=== PATIENT | female | born 1935 | race Caucasian/White ===

== ENCOUNTER 2016-08-22 05:13 | Day surgery (SDC) | payer MEDICARE, BC ==
[2016-08-21 15:21] LABS: HEMATOCRIT 41.4 % (36.0-48.0); HEMOGLOBIN 13.5 g/dL (12-16); MCH 31.3 pg (26.0-34.0); MCHC 32.6 g/dL (31.0-37.0); MCV 95.8 fL (80.0-100.0); MEAN PLATELET VOLUME 9.4 fL (7.4-10.4); RBC 4.32 10x6/uL (4.00-5.40); WBC 4.2 10x3/uL (4.8-10.8)
[~2016-08-22] VITALS: Ht 157.5 cm; Wt 68.0 kg
--- NOTE | ~2016-08-22 | OP ---
PATIENT NAME: REGINALD GIORDANO MEDICAL RECORD: [id number] LOCATION:[facility] ADMISSION DATE: SURGEON: NISSA FLORES DPM DATE OF OPERATION: 08/22/2016 PREOPERATIVE DIAGNOSIS: Enlarged fifth metatarsal head, right foot. POSTOPERATIVE DIAGNOSIS: Enlarged fifth metatarsal head, right foot. PROCEDURE: Fifth metatarsal head resection, right foot. ANESTHESIA: Local with IV sedation utilizing lidocaine and Marcaine plain, approximately 10 cc total around the fifth ray of the right foot. HEMOSTASIS: Right ankle tourniquet at 250 mmHg. PREOPERATIVE DETAILS: The patient was taken to the OR and placed on the operating table in supine position. This was followed by induction of general anesthesia and infiltration of local anesthetic. The right extremity was then prepped and draped in the usual aseptic technique followed by exsanguination of extremity and inflation of tourniquet. A 15 blade was used to create a 4-cm linear incision over dorsal aspect of the shaft of the fifth metatarsal extending to the fifth MPJ. The incision was deepened down through subcutaneous tissue. Periosteal incision was made and the head of the fifth metatarsal was delivered. Osteotome and mallet were then used to resect the head of the fifth metatarsal. All rough areas were smoothed with a rongeur and rasp. Wound was flushed. The deep tissue was closed with 2-0 Vicryl, the subcutaneous tissue with 4-0 Rapide and the skin was closed with 4-0 Rapide in a subcuticular technique followed by Dermabond, Adaptic, 4 x 4 and Conform were used to dress the wound followed by Fili wrap. Tourniquet was deflated. POSTOPERATIVE DETAILS: The patient tolerated the procedure well and left the OR with vital signs stable and vascular status at preoperative levels. The patient was transported to recovery per anesthesia in stable condition. TRANSINT:[id number] Voice Confirmation ID: [id number] DOCUMENT ID: [id number] NISSA FLORES DPM CC: [id number] DICTATION DATE: 08/22/16 1119 [employer] [employer]ER: 08/22/16 2216 [facility] 08/22/16 [facility] [address] [place] [address]
[~2016-08-22 05:13] MED LIST: CALAN SR240 MG PO; CALCIUM 600+D T1 TA1 PO; MIRAPEX1 MG PO; VOLTAREN75 MG PO
[2016-08-22 09:56] VITALS: BP 159/68; Ht 157.5 cm; Wt 68.0 kg
== END 2016-08-22 13:20 | disposition home or self-care (01) ==
LOC: D.OPS 05:13 → D.PAN 11:30 → D.OPS 13:20 → D.PAN 13:30
PROVIDERS: Anesthesiology
DX: M89.371 Hypertrophy of bone, right ankle and foot (principal)